=== PATIENT | male | born 1995 | race African-American/Black ===

== ENCOUNTER 2020-11-28 14:49 | Emergency (ER) | payer OTHER ==
[~2020-11-28] VITALS: Ht 190.5 cm; Wt 95.3 kg
[2020-11-28 14:59] VITALS: BP 117/63
--- NOTE | 2020-11-28 15:00 | NUR ---
PT IN TENT FOR COVID PRECAUTION
--- NOTE | 2020-11-28 15:04 | NUR ---
25 Y/O MALE FROM HOME C/O COUGH AND LOSS OF TASTE AND SMELL X 2 DAYS. UNKNOWN COVID CONTACT. RR EVEN AND UNLABORED. PT STATES HE WANTS TO BE TESTED FOR COVID. MEDHX: DENIES
--- NOTE | 2020-11-28 15:23 | NUR ---
DR ERAZO IN TENT EXAMINING PATIENT
--- NOTE | 2020-11-28 15:44 | NUR ---
FLU SWAB COLLECTED AND GIVEN TO LAB.
[2020-11-28 16:59] VITALS: BP 120/64
--- NOTE | 2020-11-28 16:59 | NUR ---
Patient discharged with v/s stable. Written and verbal after care instructions given and explained. Patient alert, oriented and verbalized understanding of instructions. Ambulatory with steady gait. All questions addressed prior to discharge. ID band removed. Patient advised to follow up with PMD. Rx of PROMETHAZINE HYDROCHLORIDE/DEXTROMETHORPHAN HYDROBROMIDE 6.25MG-15MG/5ML AND TAMIFLU 75MG given. Patient educated on indication of medication including possible reaction and side effects. Opportunity to ask questions provided and answered.
== END 2020-11-28 16:59 | disposition home or self-care (01) ==
LOC: MED 14:49
DX: J11.1 Influenza due to unidentified influenza virus with other respiratory manifestations (principal)
CPT/HCPCS: 87804; 99283